=== PATIENT | male | born 1995 | race Two or more races ===

== ENCOUNTER 2017-05-15 19:29 | Emergency (ER) | payer SELFPAY ==
[2017-05-15] MEDS ORDERED: Lidocaine 1% with EPINEPHrine 1:100,000 20 ML MDV INJECT ONE (19:38)
--- NOTE | 2017-05-15 19:56 | EDM.PDOC ---
ED HPI GENERAL MEDICAL PROBLEM - General Chief Complaint: Laceration Stated Complaint: PT CUT LT ARM Time Seen by Provider: 05/15/17 19:40 Source of Information: Reports: Patient History Limitations: Reports: No Limitations - History of Present Illness INITIAL COMMENTS - FREE TEXT/NARRATIVE: HISTORY AND PHYSICAL: History of present illness: [Patient was using a ammonia box tender to cut a piece of plastic at home this afternoon. He accidentally cut into his left forearm. Complains of bleeding. Patient denies any spurting of blood at the time of the accident and since the accident occurred. Description of injury is negative for an arterial laceration or injury. Last tetanus shot was within the last 5 years. He denies any other injuries, complaints or concerns. Denies numbness and tingling. No sensation of cold in his extremity. Has had full range of motion of his hand and forearm since the accident occurred. No other complaints or concerns at this time.] Review of systems: As per history of present illness and below otherwise all systems reviewed and negative. Past medical history: As per history of present illness and as reviewed below otherwise noncontributory. Surgical history: As per history of present illness and as reviewed below otherwise noncontributory. Social history: No reported history of drug or alcohol abuse. Family history: As per history of present illness and as reviewed below otherwise noncontributory. Physical exam: HEENT: Atraumatic in appearance. Extremities: 4 cm linear laceration to the ventral aspect of patient left forearm. Is actively bleeding upon presentation. Subcutaneous tissues are involved down to the muscle but not into the muscle. Capillary refill less than 2 seconds. Hand is warm and he has full range of motion of his hand and fingers. Neurovascular exam is intact. Neuro: Awake, alert, oriented. Pleasant and conversational. Motor and sensory unremarkable throughout. Exam nonfocal. Therapeutics: [Lidocaine with epi] Impression: [4 cm laceration to left forearm] Plan: [No history consistent with an arterial injury is reported. Wound is closed without difficulty. See procedure note. Patient is given a prescription for Keflex 500 mg 3 times daily for the next 7 days 0 refills. Suture removal in 7 days. Patient is in agreement with today's plan. All of his questions answered and concerns were addressed.] Definitive disposition and diagnosis as appropriate pending reevaluation and review of above. Left Arm Pain Score (Numeric/FACES): 4 - Related Data Allergies Allergy/AdvReac Type Severity Reaction Status Date / Time No Known Allergies Allergy Verified 05/15/17 19:43 Home Meds: Home Meds . [No Known Home Meds] 03/25/14 [History] Past Medical History - Past Health History Medical/Surgical History: Denies Medical/Surgical History Social & Family History - Family History Family Medical History: Noncontributory - Tobacco Use Smoking Status *Q: Never Smoker Years of Tobacco use: 2 Second Hand Smoke Exposure: No - Caffeine Use Caffeine Use: Reports: None - Recreational Drug Use Recreational Drug Use: No ED ROS GENERAL - Review of Systems Review Of Systems: ROS reveals no pertinent complaints other than HPI. ED EXAM, SKIN/RASH Exam: See Below ED SKIN PROCEDURES - Laceration/Wound Repair Left Lower Anterior Ventral Arm Lac/Wound length In cm: 4 Appearance: Subcutaneous, Linear, Clean Distal NVT: Neuro & Vascular Intact, No Tendon Injury Anesthetic Type: Local Local Anesthesia - Lidocaine (Xylocaine): 1% With EPI Local Anesthetic Volume: Other (8 mL) Skin Prep: Chlorhexidine (Hibiciens), Providone-Iodine (Betadine), Saline, Sterile Drape Exploration/Debridement/Repair: Wound Explored, No Foreign Material Found Closed with: Sutures Suture Size: 3-0 # of Sutures: 12 Suture Type: Nylon Suture Size: 3-0 # of Sutures: 5 (cat gut) Sterile Dressing Applied: Nurse Tetanus Status Addressed: Yes Complications: No Course - Vital Signs Last Recorded V/S: Last Vital Signs Temp 97.8 F 05/15/17 19:38 Pulse 71 05/15/17 21:08 Resp 18 05/15/17 21:08 BP 132/93 H 05/15/17 21:08 Pulse Ox 96 05/15/17 21:08 - Orders/Labs/Meds Meds: Medications Discontinued Medications Generic Name Dose Route Start Last Admin Trade Name Adama PRN Reason Stop Dose Admin Bacitracin 1 dose 05/15/17 20:59 05/15/17 21:03 Bacitracin Oint 1 Gm TOP 05/15/17 21:00 1 dose ONETIME ONE Administration Lidocaine/Epinephrine 20 ml 05/15/17 19:38 05/15/17 21:03 Xylocaine 1% With Epinephrine 1:100,000 INJECT 05/15/17 19:39 20 ml ONETIME ONE Administration Departure - Departure Time of Disposition: 21:00 Disposition: Home, Self-Care 01 Condition: Good Clinical Impression: Laceration of forearm, left Qualifiers: Encounter type: initial encounter Qualified Code(s): S51.812A - Laceration without foreign body of left forearm, initial encounter - Discharge Information Instructions: Laceration Care, Adult, [id number] Referrals: PCP,None [Primary Care Provider] - Forms: ED Department Discharge Additional Instructions: The following information is given to patients seen in the emergency department who are being discharged to home. This information is to outline your options for follow-up care. We provide all patients seen in our emergency department with a follow-up referral. The need for follow-up, as well as the timing and circumstances, are variable depending upon the specifics of your emergency department visit. If you don't have a primary care physician on staff, we will provide you with a referral. We always advise you to contact your personal physician following an emergency department visit to inform them of the circumstance of the visit and for follow-up with them and/or the need for any referrals to a consulting specialist. The emergency department will also refer you to a specialist when appropriate. This referral assures that you have the opportunity for follow-up care with a specialist. All of these measure are taken in an effort to provide you with optimal care, which includes your follow-up. Under all circumstances we always encourage you to contact your private physician who remains a resource for coordinating your care. When calling for follow-up care, please make the office aware that this follow-up is from your recent emergency room visit. If for any reason you are refused follow-up, please contact the [facility] emergency department at and asked to speak to the emergency department charge nurse. [facility] [address] [place] [id number] Follow-up with your primary care provider in 48-72 hours. Keep laceration clean and dry. May shower in 24 hours. Change dressing tomorrow morning. Apply Triple Antibiotic ointment and fresh dressing twice daily. Return to ER in 7 days to have sutures removed. Take antibiotic as prescribed.
[2017-05-15] MEDS ORDERED: Bacitracin Oint 1 GM U/D Packet TOP ONE (20:59)
[2017-05-15 21:09] VITALS: BP 132/93
== END 2017-05-15 21:30 | disposition home or self-care (01) ==
LOC: MW.ED 19:29
DX: S51.812A Laceration without foreign body of left forearm, initial encounter (principal); W27.8XXA Contact with other nonpowered hand tool, initial encounter; Y92.009 Unspecified place in unspecified non-institutional (private) residence as the place of occurrence of the external cause
CPT/HCPCS: 12002; 99282; 99283